=== PATIENT | male | born 2005 | race Caucasian/White ===

== ENCOUNTER 2025-02-05 19:01 | Emergency (ER) | payer MEDICAID ==
[~2025-02-05] VITALS: Ht 177.8 cm; Wt 72.0 kg
[2025-02-05 19:02] VITALS: O2SAT 100
[2025-02-05 19:04] VITALS: TEMP 36.9; O2SAT 100
[2025-02-05 19:38] VITALS: BP 179/74; PULSE 90; RESP 16
[2025-02-05] MEDS: KETOROLAC 30MG/ML VIAL IM ONE (19:38)
[2025-02-05 20:13] LABS: BASOPHILS % 0.2 % (0.0-2.0); EOSINOPHILS % 0.5 % (0.0-5.0); HEMATOCRIT. 43.5 % (42.0-52.0); HEMOGLOBIN. 14.6 g/dL (14.0-18.0); LYMPHOCYTES % 22.1 % (20.0-50.0); MEAN CORPUSCULAR HEMOGLOBIN 29.2 pg (28.0-32.0); MEAN CORPUSCULAR HGB CONC 33.5 g/dL (31.0-37.0); MEAN CORPUSCULAR VOLUME 87.1 fL (80.0-94.0); MONOCYTES % 6.3 % (2.0-8.0); NEUTROPHILS % 70.9 % (40.0-76.0); PLATELET 202 x1000/uL (130-400); RED CELL DISTRIBUTION WIDTH 13.2 % (11.6-14.6)
[2025-02-05 20:24] LABS: CHLORIDE 102 mEq/L (98-107); POTASSIUM 3.9 mEq/L (3.5-5.1); SODIUM 139 mEq/L (136-145)
[2025-02-05 20:25] LABS: CALCIUM 9.8 mg/dL (8.7-10.4); CARBON DIOXIDE 29 mEq/L (21-32)
[2025-02-05 20:30] LABS: CREATININE 0.9 mg/dL (0.6-1.3); GLUCOSE 114 mg/dL (70-105); TROPONIN I HIGH SENSITIVITY 4 ng/L (3.0-53); UREA NITROGEN BLOOD 18 mg/dL (9-23)
[2025-02-05 20:53] LABS: D-DIMER 0.36 mg/L FEU (<0.50); PROTHROMBIN TIME 10.4 sec (9.6-11.0)
[2025-02-05] MEDS ORDERED: IBUP-2029 MT (20:57)
== END 2025-02-05 21:40 | disposition home or self-care (01) ==
LOC: ER 19:01
DX: R07.2 Precordial pain (principal)
CPT/HCPCS: 80048; 85025; 85379; 85610; 84484; 36415; 71045; 93005; 99285; J1885; Z7610